=== PATIENT | female | born 1965 | race Caucasian/White ===

== ENCOUNTER 2016-07-10 13:10 | Day surgery (SDC) | payer OTHER ==
--- NOTE | ~2016-07-10 | EGD ---
EGD REPORT [facility] [address] [id number] NAME: DHARMESH MIRAMONTES : [birth year] STATUS : [place] [facility] [place] [id number] AGE: 50 ADM/REG DATE : 07/10/16 MR#: [id number] REPORT SERV DATE: 07/10/16 DICTATED BY: JOLIE BAUTISTA DATE: 07/10/16 REPORT STATUS : Draft TRANSCRIBED BY: [facility] DATE: 07/10/16 Endoscopy Center Patient Name: Dharmesh Miramontes Date of : 1965 Attending MD: JOSE ALFREDO BAUTISTA MD Procedure Date No Time: 07/10/2016 Procedure: Upper GI endoscopy Indications: Dysphagia Referring MD: JANE ZIMMERMAN MD, DAVE ADKINS MD Medicines: See the Anesthesia note for documentation of the administered medications Complications: No immediate complications. Estimated blood loss: Minimal. Procedure: Pre-Anesthesia Assessment: - ASA Grade Assessment: III - A patient with severe systemic disease. After obtaining informed consent, the endoscope was passed under direct vision. Throughout the procedure, the patient's blood pressure, pulse, and oxygen saturations were monitored continuously. The GIF [id number] was introduced through the mouth, and advanced to the jejunum. The upper GI endoscopy was accomplished without difficulty. The patient tolerated the procedure well. The upper GI endoscopy was accomplished without difficulty. The patient tolerated the procedure well. Findings: Evidence of a gastric bypass was found. A gastric pouch with a small size was found. The staple line appeared intact. The gastrojejunal anastomosis was characterized by healthy appearing mucosa. This was traversed. The ntvvw-de-datkxvh limb was characterized by healthy appearing mucosa. The jejunojejunal anastomosis was characterized by healthy appearing mucosa. The yjfcksio-lr-djqulbo limb was examined. Small erosion seen distal to the anastamosis. The examined esophagus was normal. A guidewire was placed and the scope was withdrawn. Dilation was performed with a Savary dilator with no resistance at 48 Fr. Estimated blood loss was minimal. Impression: - Gastric bypass with a small-sized pouch intact staple line. - Normal esophagus. Dilated. Recommendation: - Patient has a contact number available for emergencies. The signs and symptoms of potential delayed complications were discussed with the patient. Return to EGD REPORT [address] [place]. [address] NAME: DHARMESH MIRAMONTES : [birth year] STATUS : REG [facility]#: [id number] AGE: 50 ADM/REG DATE : 07/10/16 MR#: [id number] REPORT SERV DATE: 07/10/16 DICTATED BY: JOLIE BAUTISTA DATE: 07/10/16 REPORT STATUS : Draft TRANSCRIBED BY: [employer] DATE: 07/10/16 normal activities tomorrow. Written discharge instructions were provided to the patient. - Regular diet. - Discharge patient to home. - Continue present medications. Procedure Code(s): --- Professional --- 82578, Esophagogastroduodenoscopy, flexible, transoral; with insertion of guide wire followed by passage of dilator(s) through esophagus over guide wire Diagnosis Code(s): --- Professional --- Z98.84, Bariatric surgery status R13.10, Dysphagia, unspecified CPT copyright 2013 [employer]. All rights reserved. The codes documented in this report are preliminary and upon computer language coder review may be revised to meet current compliance requirements. Attending Participation: I personally performed the entire procedure. JOSE ALFREDO BAUTISTA MD 07/10/2016 3:48 PM This report has been signed electronically. Number of Addenda: 0 Note Initiated On: 07/10/2016 3:25 PM Scope Withdrawal Time 0 hours 0 minutes 0 seconds [id number] [id number]
[~2016-07-10 13:10] MED LIST: ADDER10 PO; ADDERALL20 MG PO; AURALGAN OT; B121000P IM; BENTYL10 PO; CALGLUCTAB PO; CALTRA600D PO; CENTRUM PO; COMP10B PO; CYMBALTA60 PO; D 5000 PO; DEX4 PO; DSS PO; FIORICET 50-301 EACH PO; FIORICET OR; INDERAL; KAOPECTATE262 MG/15 PO; LOM PO; MAXALT10 MG PO; MINIVELLE1 EAC1 T; MOMUD PO; MULTI-VIT HP PO; MULTIPLE VIT PO; NUVIGIL250 MG PO; OXYCOD PO; PCET PO; PR25 PO; PRENAVITE PR PO; T PO; TYLENOL PO; VIVELLE SY0.1 MG/24 TOP; X5 PO; XANAX1 MG PO; ZANTAC300 MG PO; ZOFRAN ODT4 MG PO; ZOFRANODT8 PO
== END 2016-07-10 23:59 | disposition home or self-care (01) ==
LOC: DMU 13:10
PROVIDERS: Internal Medicine Gastroenterology
PROC: 0D758DZ Dilation of Esophagus with Intraluminal Device, Via Natural or Artificial Opening Endoscopic (ICD-10-PCS; 2016-07-10)
PROC: 0D758ZZ Dilation of Esophagus, Via Natural or Artificial Opening Endoscopic (ICD-10-PCS; principal; 2016-07-10 15:00)
DX: R13.10 Dysphagia, unspecified (principal); Z98.84 Bariatric surgery status; Z98.890 Other specified postprocedural states; Z90.89 Acquired absence of other organs; Z90.49 Acquired absence of other specified parts of digestive tract; C56.9 Malignant neoplasm of unspecified ovary; G43.909 Migraine, unspecified, not intractable, without status migrainosus; Z88.0 Allergy status to penicillin; Z88.6 Allergy status to analgesic agent; Z88.1 Allergy status to other antibiotic agents; K21.9 Gastro-esophageal reflux disease without esophagitis; K58.9 Irritable bowel syndrome, unspecified; Z90.710 Acquired absence of both cervix and uterus; F41.9 Anxiety disorder, unspecified; F32.9 Major depressive disorder, single episode, unspecified; Z79.899 Other long term (current) drug therapy; Z79.891 Long term (current) use of opiate analgesic